=== PATIENT | female | born 2000 | race Caucasian/White ===

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

== ENCOUNTER 2023-05-29 17:16 | Emergency (ER) | payer MEDICAID ==
[~2023-05-29] VITALS: Ht 157.5 cm; Wt 72.7 kg
[2023-05-29 17:20] VITALS: BP 125/75; O2SAT 100
[2023-05-29 20:58] LABS: CLARITY URINE CLEAR (CLEAR); COLOR URINE DARK YELLOW (YELLOW); KETONES URINE NEGATIVE (NEGATIVE); LEUKOCYTE ESTERASE URINE NEGATIVE (NEGATIVE); NITRITE URINE NEGATIVE (NEGATIVE); OCCULT BLOOD URINE 2+ (NEGATIVE); PROTEIN URINE NEGATIVE (NEGATIVE); SPECIFIC GRAVITY URINE 1.033 (1.005-1.030)
[2023-05-29 21:06] LABS: BASOPHILS % 0.5 % (0.0-2.0); HEMATOCRIT. 39.3 % (36.0-48.0); HEMOGLOBIN. 12.8 g/dL (12.0-16.0); LYMPHOCYTES % 29.1 % (20.0-50.0); MEAN CORPUSCULAR HEMOGLOBIN 30.1 pg (28.0-32.0); MEAN CORPUSCULAR VOLUME 92.6 fL (81.0-99.0); MONOCYTES % 6.4 % (2.0-8.0); PLATELET 302 x1000/uL (130-400); RED BLOOD CELL COUNT 4.25 mill/uL (4.2-5.4); RED CELL DISTRIBUTION WIDTH 14.1 % (11.6-14.6)
[2023-05-29 21:07] LABS: CHLORIDE 105 mEq/L (98-107)
[2023-05-29] MEDS ORDERED: IBUP-2028 MT (22:55)
[2023-05-29 23:06] VITALS: PULSE 78; RESP 18; TEMP 98.3
== END 2023-05-29 23:06 | disposition home or self-care (01) ==
LOC: ER 20:46
DX: N93.9 Abnormal uterine and vaginal bleeding, unspecified (principal)
CPT/HCPCS: 36415; 76830; 76856; 80053; 81003; 81025; 85025; 86850; 86900; 99284